=== PATIENT | female | born 1990 | race African-American/Black ===

== ENCOUNTER 2016-07-26 23:28 | Emergency (ER) | payer BC ==
[~2016-07-26] VITALS: Ht 162.6 cm; Wt 77.1 kg
[2016-07-26 23:43] VITALS: BP 106/76
[2016-07-26] MEDS ORDERED: EYE-STREAM OPHTH SOLUTION 120 ML BOTTLE. ONE (23:58)
[2016-07-26] MEDS ORDERED: FLUORESCEIN OPHTH TEST STRIP. ONE (23:58)
[2016-07-27] MEDS ORDERED: FLUORESCEIN OPHTH TEST STRIP. OD ONE
[2016-07-27] MEDS ORDERED: EYE-STREAM OPHTH SOLUTION 120 ML BOTTLE. OD ONE
[2016-07-27] MEDS ORDERED: TETRACAINE 0.5% OPHTH SOLUTION 4ML BOTTLE. OD ONE
[2016-07-27] MEDS ORDERED: OFLO5DRO EACHEYE (00:17)
--- NOTE | 2016-07-27 00:17 | PHYS DOC ---
Past Medical History Past Medical History: No Pertinent History Past Surgical History: No Surgical History Additional Past Surgical Histo: WISDOM TEETH Alcohol Use: None Drug Use: None Adult General Chief Complaint Chief Complaint: EYE PROBLEMS HPI HPI Patient is a 25 year old female presents to the emergency department stating that she was blowing up water balloons today when water splashed into her eyes and she think that she may have been hit with a balloon. Patient states that she 's been having some blurry vision although has had no drainage noted from the eyes. She denies any recent upper respiratory congestion. She does state that she has one naris that is usually congested all the time. She denies any fever, chills or any nausea vomiting. Patient does have a history of urinary contact lenses although states that she has not worn them for some time. Review of Systems Review of Systems Constitutional: Denies fever or chills [] Eyes: Denies change in visual acuity, C/o right eye redness, and burning [] HENT: Denies nasal congestion or sore throat [] Respiratory: Denies cough or shortness of breath [] Cardiovascular: No additional information not addressed in HPI [] GI: Denies abdominal pain, nausea, vomiting, bloody stools or diarrhea [] : Denies dysuria or hematuria [] Musculoskeletal: Denies back pain or joint pain [] Integument: Denies rash or skin lesions [] Neurologic: Denies headache, focal weakness or sensory changes [] Endocrine: Denies polyuria or polydipsia [] Current Medications Current Medications Current Medications Medications (Trade) Dose Ordered Sig/Indigo Start Time Stop Time Status Last Admin Dose Admin Balanced Salt Solution (Eye-Stream) 120 ml STK-MED ONCE 07/26/16 23:58 07/26/16 23:59 DC Fluorescein Sodium (Ful-Shanique) 1 strip STK-MED ONCE 07/26/16 23:58 07/26/16 23:59 DC Tetracaine HCl (Tetracaine) 1 drop 1X ONCE 07/27/16 00:00 07/27/16 00:01 DC 07/27/16 00:01 1 DROP Allergies Allergies Allergies Coded Allergies Type Severity Reaction Last Updated Verified No Known Drug Allergies 09/19/14 No Physical Exam Physical Exam Constitutional: Well developed, well nourished, no acute distress, non-toxic appearance. [] HENT: Normocephalic, atraumatic, bilateral external ears normal, oropharynx moist, no oral exudates, nose normal. Bilateral TM normal Eyes: PERRLA, EOMI, conjunctiva normal, no discharge. [] Neck: Normal range of motion, no tenderness, supple, no stridor. [] Skin: Warm, dry, no erythema, no rash. [] Neurologic: Alert and oriented X 3, normal motor function, normal sensory function, no focal deficits noted. [] Psychologic: Affect normal, judgement normal, mood normal. [] Current Patient Data Vital Signs Vital Signs Date Time Temp Pulse Resp B/P (MAP) Pulse Ox O2 Delivery O2 Flow Rate FiO2 07/26/16 23:43 98.4 81 18 100 Room Air 98.4 EKG EKG [] Radiology/Procedures Radiology/Procedures [] Course & Med Decision Making Course & Med Decision Making Pertinent Labs and Imaging studies reviewed. (See chart for details) Tetracaine was placed into the right eye. Fluorescein uptake was noted at the 11 :00 area with a pinpoint dot noted. Patient appears to have redness noted in the sclera part of the eyes. Patient will be placed on ofloxacin patient will be encouraged to avoid using contact lenses for the next 7 days. Also recommended starting eye makeup and obtain a new. Patient will be updated with a tetanus immunization. Signs and symptoms to return back to emergency department as been provided. Recommended following up with an manufacturing production manager on Saturday. [] Dragon Disclaimer Dragon Disclaimer This electronic medical record was generated, in whole or in part, using a voice recognition dictation system. Departure Departure Impression: Primary Impression: Conjunctivitis Additional Impression: Corneal abrasion, right Disposition: 01 HOME, SELF-CARE Condition: STABLE Referrals: UNKNOWN PCP NAME (PCP) Patient Instructions: Conjunctivitis, Chemical, [id number], Eye - Corneal Abrasion, [id number] Additional Instructions: Activity as tolerated. Medication as prescribed. Tylenol or ibuprofen for pain and discomfort. Good handwashing is essential. Follow-up with an manufacturing production manager on Saturday. Return back to emergency prior signs symptoms of become worse. Scripts Ofloxacin (OCUFLOX) 5 Ml Drops 1-2 DROP EACHEYE BID, #1 BOTTLE Prov: DARWIN REN APRN 07/27/16 Problem QualDARWIN Rubio APRN Jul 27, 2016 00:17
[2016-07-27] MEDS ORDERED: DIPHTH,PERTUSS(ACELL),TET TOX 0.5 ML DISP.SYRIN. VAX IM ONE (00:30)
== END 2016-07-27 00:34 | disposition home or self-care (01) ==
LOC: ER 23:28
DX: S05.01XA Injury of conjunctiva and corneal abrasion without foreign body, right eye, initial encounter (principal); H10.9 Unspecified conjunctivitis; X58.XXXA Exposure to other specified factors, initial encounter; Y93.89 Activity, other specified; Y92.89 Other specified places as the place of occurrence of the external cause; Y99.8 Other external cause status
CPT/HCPCS: 90471; 90715; 99283-25

== ENCOUNTER 2017-09-20 21:29 | Emergency (ER) | payer OTHER, BC | END 2017-09-20 22:05 | disposition home or self-care (01) | LOC: ER 22:05 | DX: R51 Headache (principal); V43.52XA Car driver injured in collision with other type car in traffic accident, initial encounter; Y93.89 Activity, other specified; Y92.488 Other paved roadways as the place of occurrence of the external cause; Y99.8 Other external cause status | CPT/HCPCS: 99283 ==